=== PATIENT | female | born 1960 | race Caucasian/White ===

== ENCOUNTER 2021-06-13 13:05 | Outpatient (CLI) | payer OTHER, SELFPAY | END 2021-06-13 13:06 | disposition home or self-care (01) | LOC: ANHAUDIO 13:06 | PROVIDERS: PCP Physician Assistant; Visit Provider Physician Assistant | DX: H91.93 Unspecified hearing loss, bilateral (principal) | CPT/HCPCS: 92557; 92567 ==

== ENCOUNTER 2024-12-26 07:31 | Outpatient (CLI) | payer MEDICARE, SELFPAY ==
--- NOTE | ~2024-12-26 | MM_ITS ---
EXAMINATION: MM scrn jeanine implant BI w jose HISTORY: Screening mammogram TECHNIQUE: Craniocaudal and mediolateral oblique 3-D tomosynthesis images with implant displacement a nd synthetic 2-D images were generated. Craniocaudal and mediolateral oblique views of the breasts wi thout implant displacement were obtained using full field digital mammography. CAD analysis was submi tted and interpreted. COMPARISON: No prior studies for comparison. BREAST PARENCHYMAL COMPOSITION: Dense: The breasts are heterogeneously dense, which may obscure small masses FINDINGS: There are bilateral subpectoral breast implants. There is no evidence of suspicious mass, c alcification, or architectural distortion to suggest malignancy in either breast. There has been no s uspicious interval change. IMPRESSION: 1. No mammographic evidence of malignancy. 2. Recommend routine screening mammography in one year. BI-RADS Category 1: Negative Reviewed, dictated and finalized at location A.
--- OUTSIDE RECORDS SUMMARY | 2024-12-26 07:34 | XMS_ITS | Encounter Summary ---
Author Organization [facility] Address [address] [place] [address] Care Team Providers Care Agent Name Role Phone Conversion, History Primary Care Provider Alicia rich Encounter Details Date Type Department Care Team (Late st Contact Info) Description 01/25/2007 Outpatient Historical [facility] [place] [facility] [address] 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
--- OUTSIDE RECORDS SUMMARY | 2024-12-26 07:34 | XMS_ITS | Continuity of Care Document ---
Author Organization [facility] [place] [address] [place] [address] Phone Care Team Providers Care Head Well Puller Name Role Phone Pinto OD, Jermaine Unavailable Unavailable Procedures Procedure Date Vision Svcs Frames Purchases Medical Tax Contact Lens Hydrophilic, Spherical [employer] Medical Contact Lens Check Eye Exam & Treatment Refraction Contact Lens Hydrophilic, Spherical [employer] Medical CL Replacement - [employer] Disp W/BW Soft [employer] [facility] CL Replacement - [employer] Disp W/BW Soft Deed No Charge Contact Lens Check Eye Exam & Treatment Refraction CL Replacement - [employer] Disp W/BW Soft [employer] Medical CL Replacement - [employer] Disp W/BW Soft Deed No Charge Contact Lens Check CL Replacement - [employer] Disp W/BW Soft [employer] Medical Eye Exam & Treatment Advance Directives Directive Yes / No Effective Date File Name No Information Encounters Encounter Description Practice Location Reason(s) For Visit Diagnoses Date Provider Providers Copied on Encounter [facility], [address], [place], [place], [id number], [place] tel:[phone] [facility] No Information Aug-0 6-201 0 Pinto OD Jermaine. [address] , [address], [place], [place], [facility], [place]. tel:[phone] [facility], [address], [place], [place], [address], [place] tel:[phone] SEC [facility] No Information Apr-0 6-201 0 Pinto OD Jermaine. [address] , [address], [place], [place], [facility], [place]. tel:[phone] [facility], [address] [place] [address] [address], [place], [place], [address], [place] tel:[phone] SEC [facility] No Information Sep- 0-201 0 Pinto OD Jermaine. [address] [facility] , [address], [place], [facility], [place]. tel:[phone] [facility], [address] [place] [address] [address], [place], [place], [address], [place] tel:[phone] [facility] No Information 2 7-201 0 Pinto OD Jermaine. [address] [facility] , [address], [place], [facility], [place]. tel:[phone] [facility], [address], [place], [place], [address], [place] tel:[phone] [facility] No Information Dec-1 1-200 9 Pinto OD Jermaine. [address] [facility] , [address], [place], [facility], [place]. tel:[phone] Referring Provider: Jermaine Pinto OD A, [facility] [address], [place], [facility]. tel:[phone] [facility], [address] [place] [address] [address], [place], [place], [address], [place] tel:[phone] [facility] No Information Joshua-1 7-200 9 Pinto OD Jermaine. [address] [facility] , [address], [place], [facility], [place]. tel:[phone] Referring Provider: Jermaine Pinto OD A, [address], [place], [address]. tel:[phone] [facility], [address] [place] [address] [address], [place], [place], [address], tel:[phone] [facility] No Information Mar-2 0-200 9 Pinto OD Jermaine. [facility] , [address], [place], [facility], [place]. tel:[phone] Referring Provider: Jermaine Pinto OD A, [address] [place], [place] [address], [place], [facility]. tel:[phone] [facility], [address] [place] [address] [address], [place], [place], [address], [place] tel:[phone] [facility] No Information Mar-1 3-200 9 Pinto OD Jermaine. [facility] , [address], [place], [facility], [place]. tel:[phone] [facility], [address] [place] [address] [address], [place], [place], [address], [place] tel:[phone] [facility] No Information Mar-0 6-200 9 Pinto OD Jermaine. [facility] [address] [facility] , [address], [place], [facility], [place]. tel:[phone] [facility], [address] [place] [address] [address], [place], [place], [address], [place] tel:[phone] [facility] No Information Nov-2 1-200 8 Pinto OD Jermaine. [facility] , [address], [place], [facility], [place]. tel:[phone] [facility], [address] [place] [address] [address], [place], [place], [address], tel:[phone] [facility] No Information Joshua-0 8-200 8 Pinto OD Jermaine. [address] [facility] , [address], [place], [facility], . tel:[phone] [facility], [address] [place] [address] [address], [place], [place], [address], tel:[phone] [facility] No Information Carter-1 7-200 8 Pinto OD Jermaine. [address] [facility] , [address], [place], [facility], . tel:[phone] [facility], [address] [place] [address] [address], [place], [place], [address], tel:[phone] [facility] No Information May-1 6-200 8 Pinto OD Jermaine. [address] [facility] , [address], [place], [facility], . tel:[phone] [facility], [address] [place] [address] [address], [place], [place], [address], tel:[phone] [facility] No Information May-0 9-200 8 Pinto OD Jermaine. [address] [facility] , [address], [place], [facility], . tel:[phone] Family History Family Member Type Diagnosis Age At Onset No Information Payers Payer name Insurance type Covered green party ID Authoriza tion(s) No Information Social History Type Description Quantity Date Captured Comments Sex Female Smoking Status No Information Chief Complaint And Reason For Visit No Information Reason For Referral Reason For Referral No Information History Of Present Illness Encounter Date Complaint History Of Prese nt Illness No Information Functional Status Date Functional Assessmen t No Information Instructions Date Instruction Additional Infor mation No Information Assessments Type Assessment Date No Information Patient Care Teams Name Effective Dates (start - stop) Status Members No Information
--- OUTSIDE RECORDS SUMMARY | 2024-12-26 07:34 | XMS_ITS | Encounter Summary ---
Author Organization [employer] [facility] Address 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 Gender Identity Not on file Sexual Orientation Not on file documented as of this encounter Plan of Treatment Not on file documented as of this encounter Procedures Procedure Name Priority Date/Time Associated Diagnosis Comments HEMOGLOBIN AND HEMATOCRIT Routine 01/25/2007 6:21 AM CDT documented in this encounter Results * HEMOGLOBIN AND HEMATOCRIT (01/25/2007 6:21 AM CDT) HEMOGLOBIN 13.0 11.8 - 14.8 g/dL INTERFACE SYSTEM HEMATOCRIT 38.9 35.5 - 44.0 % INTERFACE SYSTEM 01/25/2007 6:21 AM CDT us Venu Mckay MD HEMATOLOGY ORDERABLES Edited INTERFACE SYSTEM Refer to clinic/hospital department documented in this encounter Visit Diagnoses Diagnosis Mechanical complication due to breast prosthesis- Primary documented in this encounter Care Teams Corporate Financial Analyst Relationship Specialty Start Date End Date Conversion, History PCP - General 01/25/07 documented as of this encounter
--- OUTSIDE RECORDS SUMMARY | 2024-12-26 07:34 | XMS_ITS | Clinical Summary ---
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 Gender Identity Not on file Sexual Orientation Not on file Plan of Treatment Health Maintenance Due Date Last Done Comments DTAP/TDAP/TD VACCINES (1 - Tdap) 1977 BREAST CANCER SCREENING 1998 COLORECTAL SCREENING 2003 Colorectal Cancer Screening 2003 FIT-DNA Q 3 years 2003 FIT/FOBT Q 1 year 2003 Flex Sig/CT Colonography Q 5 years 2003 PNEUMOCOCCAL VACCINE 50+ YEARS (1 of 1 - PCV) 02/03/20 08 ZOSTER VACCINE (1 of 2) 02/03/2008 OSTEOPOROSIS SCREENING 2023 INFLUENZA VACCINE (#1) 2024 RSV VACCINE (60+ or ) (1 - 1-dose 75+ series) 2033 Care Teams Facility Assistant Relationship Specialty Start Date End Date Conversion, History PCP - General 01/25/07
== END 2024-12-26 07:32 | disposition home or self-care (01) ==
PROVIDERS: PCP Family Medicine; Visit Provider Family Medicine
DX: Z12.31 Encounter for screening mammogram for malignant neoplasm of breast (principal)
CPT/HCPCS: 77063; 77067

== ENCOUNTER 2025-01-07 08:56 | Outpatient (CLI) | payer MEDICARE, SELFPAY ==
--- NOTE | ~2025-01-07 | DEXA_ITS ---
Bone Density Report Name: TG RODRIGEZ Age: 64 Sex: Female Ethnicity: White Date of : 1960 Indication: postmenopausal; screening for osteoporosis; parental hip fracture; cancer; hysterectomy; Referring Provider: YAHAIRA, GABO Study: Bone densitometry was performed. Exam Date: January 07, 2025 Accession number: [id number] Bone Density: Region BMD T-score Z-score Classification AP Spine(L1-L4) 0.922 -1.1 0.8 Osteopenia Femoral Neck (Left) 0.669 -1.6 0.0 Osteopenia Total Hip (Left) 0.812 -1.1 0.3 Osteopenia Femoral Neck (Right) 0.643 -1.9 -0.2 Osteopenia Total Hip (Right) 0.736 -1.7 -0.4 Osteopenia Total Hip Mean 0.774 -1.4 -0.1 Osteopenia World Health Organization criteria for BMD impression classify patients as: Normal (T-score at or above -1.0), Osteopenia (T-score between -1.0 and -2.5), or Osteoporosis (T-score at or below -2.5). 10-year Fracture Risk(1): Major Osteoporotic Fracture 18% Hip Fracture 2.1% Reported Risk Factors: [place] (), Neck BMD=0.643, BMI=26.3, parental fracture (1) FRAX(R) Version 3.08. Fracture probability calculated for an untreated patient. Fracture probability may be lower if the patient has received treatment. Clinical Information Provided by Patient: Parent has had a hip fracture Has used the following medications: Vitamin D Has the following medical conditions: Cancer, Hysterectomy Patient maximum height was 63 Menopause Age: 38 No regular weight bearing exercise Drinks caffeinated beverages Onset of menses at age 11 Number of children 2 Impression: The patient has low bone mass, based on the Right Femoral Neck T-score. The patient has an estimated ten-year risk of hip fracture of 2.1% and an estimated ten-year risk of major fracture of 18%, based on the WHO FRAX algorithm. The patient has risk factors, including: parental hip fracture. Discussion: BONE DENSITY IS LOW AT ONE OR MORE SKELETAL SITES. This patient's lowest T-score is low at one or more skeletal sites. It meets the World Health Organization's (WHO) criteria for ?low bone mass? (T-score between -1.0 and -2.5). The patient's 10-year risk of fracture as calculated by FRAX is less than the threshold where pharmacological therapy is recommended by the National Osteoporosis Foundation (NOF). However, all treatment decisions require clinical judgment and consideration of individual patient factors, including patient preferences, comorbidities, previous drug use, risk factors not captured in the FRAX model (e.g., frailty, falls, vitamin D deficiency, increased bone turnover, interval significant decline in bone density) and possible under or overestimation of fracture risk by FRAX. The patient should follow a healthful lifestyle (good nutrition with adequate calcium and vitamin D, and appropriate weight-bearing exercise). Follow-Up: Consider repeating this study in 2 to 3 years to reassess this patient's status, or sooner if there is some new clinical indication. Reported by: YOSHI on 01/07/2025 9:39:00 AM. Reviewed, dictated and finalized at location A.
--- OUTSIDE RECORDS SUMMARY | 2025-01-07 08:59 | XMS_ITS | Clinical Summary ---
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
--- OUTSIDE RECORDS SUMMARY | 2025-01-07 08:59 | XMS_ITS | Continuity of Care Document ---
Author Organization [facility] [place] [address] [place] [address] Phone Care Team Providers Care Car Sales Consultant Name Role Phone Pinto OD, Jermaine Unavailable Unavailable Procedures Procedure Date Vision Svcs Frames Purchases Medical Tax Contact Lens Hydrophilic, Spherical [facility] Medical Contact Lens Check Eye Exam & Treatment Refraction Contact Lens Hydrophilic, Spherical [facility] Medical CL Replacement - [employer] Disp W/BW Soft [facility] Medical CL Replacement - [employer] Disp W/BW Soft BRAIN No Charge Contact Lens Check Eye Exam & Treatment Refraction CL Replacement - [employer] Disp W/BW Soft [facility] Medical CL Replacement - [employer] Disp W/BW Soft BRAIN No Charge Contact Lens Check CL Replacement - [employer] Disp W/BW Soft [facility] Medical Eye Exam & Treatment Advance Directives Directive Yes / No Effective Date File Name No Information Encounters Encounter Description Practice Location Reason(s) For Visit Diagnoses Date Provider Providers [facility] [address], [place], [place], [address], [place] tel:[phone] [facility] [place] [facility] No Information Aug-0 6-201 0 Pinto OD Jermaine. [address] , [address], [place], [place], [facility]. tel:[phone] [facility], [address], [place], [place], [address], [place] tel:[phone] [facility] No Information Apr-0 6-201 0 Pinto OD Jermaine. [address] , [address], [place], [facility] [place]. tel:[phone] [facility], [address] [place] [address] [address], [place], [place], [address], [place] tel:[phone] [facility] No Information Sep- 0-201 0 Pinto OD Jermaine. [address] [facility] , [address], [place], [facility] [place]. tel:[phone] [facility], [address] [place] [address] [address], [place], [place], [address], [place] tel:[phone] [facility] No Information 2 7-201 0 Pinto OD Jermaine. [address] [facility] , [address], [place], [facility] [place] [place]. tel:[phone] [facility], [address], [place], [place], [address], [place] tel:[phone] [facility] No Information Dec-1 1-200 9 Pinto OD Jermaine. [address] [facility] , [address], [place], [facility]. tel:[phone] Referring Provider: Jermaine Pinto OD A, [facility] [address], [place], [facility]. tel:[phone] [facility], [address] [place] [address] [address], [place], [place], [address], [place] tel:[phone] [facility] No Information Joshua-1 7-200 9 Pinto OD Jermaine. [address] [facility] , [address], [place], [facility] [place]. tel:[phone] Referring Provider: Jermaine Pinto OD A, [address], [place], [address]. tel:[phone] [facility], [address] [place] [address] [address], [place], [place], [address], tel:[phone] [facility] No Information Mar-2 0-200 9 Pinto OD Jermaine. [facility] , [address], [place], [facility] [place]. tel:[phone] Referring Provider: Jermaine Pinto OD A, [address] [place], [place] [address], [place], [facility]. tel:[phone] [facility], [address] [place] [address] [address], [place], [place], [address], [place] tel:[phone] [facility] No Information Mar-1 3-200 9 Pinto OD Jermaine. [facility] , [address], [place], [facility] [place]. tel:[phone] [facility], [address] [place] [address] [address], [place], [place], [address], [place] tel:[phone] [facility] No Information Mar-0 6-200 9 Pinto OD Jermaine. [facility] , [address], [place], [facility] [place]. tel:[phone] [facility], [address] [place] [address] [address], [place], [place], [address], [place] tel:[phone] [facility] No Information Nov-2 1-200 8 Pinto OD Jermaine. [facility] , [address], [place], [facility] [place]. tel:[phone] [facility], [address] [place] [address] [address], [place], [place], [address], tel:[phone] [facility] No Information Joshua-0 8-200 8 Pinto OD Jermaine. [address] [facility] , [address], [place], [facility], . tel:[phone] [facility], [address] [place] [address] [address], [place], [place], [address], tel:[phone] [facility] No Information Carter-1 7-200 8 Pinto OD Jermaine. [address] [facility] , [address], [place], [facility], . tel:[phone] [facility], [address] [place] [address] [address], [place], [place], [address], tel:[phone] [facility] No Information May-1 6-200 8 Pinto OD Jermaine. [address] [facility] , [address], [place], [facility], . tel:[phone] [facility], [address] [place] [address] [address], [place], [place], [address], tel:[phone] [facility] No Information May-0 9-200 8 Pinto OD Jermaine. [address] [facility] , [address], [place], [facility], . tel:[phone] Family History Family Member Type Diagnosis Age At Onset No Information Payers Payer name Insurance type Covered alliance party ID Authoriza tion(s) No Information Social [...]
--- OUTSIDE RECORDS SUMMARY | 2025-01-07 08:59 | XMS_ITS | Encounter Summary ---
Author Organization [employer] Address [address] [place] [address] Care Team Providers Care Brick Paver Name Role Phone Conversion, History Primary Care Provider Alicia rich Encounter Details Date Type Department Care Team (Late st Contact Info) Description 01/25/2007 Outpatient Historical [facility] [address] 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
--- OUTSIDE RECORDS SUMMARY | 2025-01-07 08:59 | XMS_ITS | Encounter Summary ---
Author Organization [employer] [facility] Address 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
== END 2025-01-07 08:57 | disposition home or self-care (01) ==
LOC: ANHIMG 08:58
PROVIDERS: PCP Family Medicine; Visit Provider Nurse Practitioner
DX: M85.89 Other specified disorders of bone density and structure, multiple sites (principal); Z78.0 Asymptomatic menopausal state; Z13.820 Encounter for screening for osteoporosis
CPT/HCPCS: 77080